=== PATIENT | female | born 1950 ===

== ENCOUNTER → 2018-09-08 21:12 | Outpatient (REF) | payer MEDICARE, SELFPAY ==
[2018-09-09 06:38] LABS: Free T4, Direct Thyroxine 1.67 ng/dL (0.78-2.19)
[2018-09-13 15:51] LABS: Anti Thyroglobulin Antibody 6 IU/mL (< 2); Thyroid Peroxidase Antibodies 94 IU/mL (< 9)
== END ==
LOC: LAB 21:12
PROVIDERS: Visit Provider Family Medicine
DX: K58.0 Irritable bowel syndrome with diarrhea (principal); E03.9 Hypothyroidism, unspecified; G25.0 Essential tremor
CPT/HCPCS: 36415; 84439; 84443; 86376; 86800